=== PATIENT | female | born 1995 | race Caucasian/White ===

== ENCOUNTER → 2020-06-20 09:58 | Outpatient (CLI) | payer BC, SELFPAY ==
[2020-06-20 11:01] LABS: Influenza A - CEPHEID Flu A NEGATIVE (NEGATIVE); Influenza B - CEPHEID Flu B NEGATIVE (NEGATIVE)
[2020-06-21 12:23] LABS: COVID19 Sendout Not Detected (Not Detect)
== END ==
PROVIDERS: Visit Provider Nurse Practitioner
DX: R05 Cough (principal); R50.9 Fever, unspecified; R68.89 Other general symptoms and signs; Z11.59 Encounter for screening for other viral diseases
CPT/HCPCS: 87502; 87635